=== PATIENT | female | born 1945 | race Asian ===

== ENCOUNTER 2017-08-31 03:15 | Emergency (ER) | payer MEDICARE ==
[~2017-08-31] VITALS: Ht 160 cm; Wt 54.4 kg
[2017-08-31 03:15] VITALS: BP 123/73
[2017-08-31] MEDS ORDERED: DILAUDID 00.5 MG/0.5 SL (03:22)
[2017-08-31] MEDS ORDERED: MORPHINE 00.5 MG/11 IJ (03:22)
[2017-08-31] MEDS ORDERED: LORAZEPAM2 MG ORAL (03:22)
--- NOTE | 2017-08-31 04:11 | Emergency Room Report ---
History of Present Illness General Chief Complaint: Abdominal Pain Source: Family Member Present Illness HPI This is a 72-year-old female with history of metastatic gallbladder cancer. She 's end-stage she is currently in hospice. She was brought in by family for chief complaint of pain and shortness of breath. Onset tonight. No fever or chills. Her pain medication was recently increased. The daughter has been giving her morphine and patient appeared to be still in a lot of pain. She called hospice nurse who said she was too tired to come out. Not away for couple hours and patient was still in pain so she called 911. History is from the daughter because patient is confused and unable to give a history. No trauma. No fever or chills. Patient was at [facility] 10 days ago and had a peritoneal catheter placed for ascites. Allergies: Coded Allergies: No Known Allergies (Unverified , 08/31/17) Patient History Past Medical History: see triage record, old chart reviewed Past Surgical History: other Pertinent Family History: none Social History: Denies: smoking Last Menstrual Period: NA Now: No Immunizations: other Reviewed Nursing Documentation: PMH: Agreed, PSxH: Agreed Nursing Documentation-PMH Hx Cancer: Yes - galbladder ca Review of Systems Eye: Denies: eye pain, blurred vision ENT: Denies: ear pain, nose congestion, throat swelling Respiratory: Denies: cough, shortness of breath Cardiovascular: Denies: chest pain, palpitations Gastrointestinal: Reports: abdominal pain, Denies: diarrhea, nausea, vomiting Musculoskeletal: Denies: back pain, joint pain Skin: Denies: rash Neurological: Denies: headache, numbness Endocrine: Denies: increased thirst, increased urine Hematologic/Lymphatic: Denies: easy bruising All Other Systems: negative except mentioned in HPI Physical Exam Vital Signs Date Time Temp Pulse Resp B/P (MAP) Pulse Ox O2 Delivery O2 Flow Rate FiO2 08/31/17 03:08 98.1 102 18 123/73 92 Room Air vitals stable Sp02 EP Interpretation: reviewed, normal General Appearance: no apparent distress, thin, Chronically Ill Head: normocephalic, atraumatic Eyes: bilateral eye PERRL, bilateral eye EOMI, bilateral eye scleral icterus ENT: hearing grossly normal, normal pharynx Neck: full range of motion, supple, no meningismus Respiratory: chest non-tender, lungs clear, normal breath sounds Cardiovascular #1: regular rate, rhythm, no murmur Gastrointestinal: no mass, no organomegaly, no bruit, abnormal bowel sounds - Hyperactive, distended, tenderness Musculoskeletal: back normal, normal range of motion Psychiatric: depressed affect Skin: warm/dry Procedures Additional Procedure Procedure Narrative Procedure: Paracentesis Indication: Symptomatic ascites Description: Under sterile condition, I looked peritoneal catheter to a paracentesis bag. About 2 L of ascites drained. Patient tolerated procedure without a problem. No complication. Medical Decision Making Diagnostic Impression: Primary Impression: Abdominal pain of unknown etiology Additional Impressions: Pain, chronic Qualified Codes: G89.4 - Chronic pain syndrome Primary cancer of gallbladder with metastasis to other site ER Course Patient presents with pain secondary to her cancer. She is more comfortable here. I did not have to give her additional pain medication. Explained to daughter help diminish her pain medication and when it is much. I also drain ascites to alleviate some of her pain. Patient is a DO NOT RESUSCITATE and hospice. I did not do any laboratory work Last Vital Signs Date Time Temp Pulse Resp B/P (MAP) Pulse Ox O2 Delivery O2 Flow Rate FiO2 08/31/17 03:15 98.1 99 18 123/73 99 Room Air Status: improved Disposition: HOME, SELF-CARE Condition: Stable Referrals: NON PHYSICIAN (PCP) Additional Instructions: Followup with hospice as scheduled. Followup your Dr. within a week. You can continue to give her morphine as needed for pain. Return if symptom worsen. AQUILES SHETTY M.D. Aug 31, 2017 04:11
[2017-08-31 05:15] VITALS: BP 118/85
[2017-08-31] MEDS ORDERED: Morphine Sulfate 10mg/ml Inj IM ONE (07:15)
[2017-08-31] MEDS ORDERED: ZOFRAN ODT4 MG ORAL (07:29)
[2017-08-31 07:42] VITALS: BP_SYST 118; BP_SYST 121; BP_DIAS 80; BP_DIAS 85
== END 2017-08-31 07:43 | disposition home or self-care (01) ==
LOC: EDBD 03:15 → EMR 03:55
DX: R10.9 Unspecified abdominal pain (principal); G89.29 Other chronic pain; R18.8 Other ascites; C23 Malignant neoplasm of gallbladder; C79.9 Secondary malignant neoplasm of unspecified site; Z51.5 Encounter for palliative care
CPT/HCPCS: 49082; 96372; 99284; J2270; J2550